=== PATIENT | female | born 1970 | race American Indian/Alaskan Native ===

== ENCOUNTER 2016-10-29 14:43 | Outpatient (CLI) | payer OTHER | END 2016-10-29 14:44 | disposition home or self-care (01) | LOC: LABHHL 14:43 | PROVIDERS: ATTEND Specialist | DX: N60.02 Solitary cyst of left breast (principal); N63 Unspecified lump in breast | CPT/HCPCS: 88112 ==

== ENCOUNTER 2017-12-18 13:09 | Outpatient (CLI) | payer OTHER ==
--- NOTE | 2017-12-21 08:57 | Mammography Report ---
BILATERAL DIGITAL SCREENING MAMMOGRAM with CAD: 12/18/17 13:09:00 CLINICAL: Routine screening. COMPARISON:10/09/16, 10/29/16, 01/01/15 and 12/30/13 FINDINGS: The breasts are heterogeneously dense, which may obscure small masses and the density is sufficient to limit the sensitivity of mammography.Bilateral circumscribed densities require additional imaging. In addition, focal architectural distortion in the outer right breast on an exaggerated CC view requires additional imaging.No suspicious calcifications. IMPRESSION: Bilateral asymmetries and right architectural distortion requiring further workup. BI-RADS CATEGORY: 0 -- Additional Imaging Evaluation Required RECOMMENDATION: Recall for right mediolateral and spot magnification and exaggerated CC views and bilateral global breast ultrasound. ACR BI-RADS MAMMOGRAPHIC CODES: 0 = Needs additional imaging evaluation; 1 = Negative; 2 = Benign; 3 = Probably benign; 4 = Suspicious; 5 = Malignant; 6 = Known biopsy-proven malignancy COMMENT: 1. Dense breast tissue, i.e., adenosis, fibrocystic changes, etc., may obscure an underlying neoplasm. 2. Approximately 10% of cancers are not detected with mammography. 3. A negative mammography report should not delay biopsy if a clinically suspicious mass is present. COMMENT: Patient follow-up letters are generated via our [employer] application.
== END 2017-12-18 13:10 | disposition home or self-care (01) ==
LOC: SPVWC 13:09
PROVIDERS: ATTEND Obstetrics & Gynecology
DX: Z12.31 Encounter for screening mammogram for malignant neoplasm of breast (principal)
CPT/HCPCS: 77067

== ENCOUNTER 2018-12-20 14:35 | Outpatient (CLI) | payer OTHER ==
--- NOTE | 2018-12-21 11:03 | Mammography Report ---
DIGITAL SCREENING MAMMOGRAM WITH CAD, 12/20/2018 INDICATION: Routine screening mammography. TECHNIQUE: Digital bilateral 2D mammography was obtained in the craniocaudal and mediolateral obliq ue projections. This examination was interpreted with the benefit of Computer-Aided Detection analysi s. COMPARISON: 12/18/2017, 10/09/2016 and 01/01/2015 FINDINGS: Breast Density: The breasts are extremely dense, which lowers the sensitivity of mammography. There is no evidence of dominant mass, suspicious calcifications or architectural distortion in the r ight breast. Left partially circumscribed asymmetries on both views require additional imaging. No ar chitectural distortion or suspicious calcifications. IMPRESSION: Left asymmetries requiring additional workup. Recommend recall for left spot compression views and left breast ultrasound if needed. Follow up recommendation: Special View: Spot Category 0: Incomplete. Needs additional imaging evaluation and/or prior mammograms for comparison. A "normal" or negative report should not discourage follow up or biopsy of a clinically significant f inding. A written summary of these findings will be mailed to the patient. The patient will be entered into a mammography reporting system which will generate a reminder letter for the patient's next appointmen t at the appropriate interval. The [employer] recommends yearly mammograms starting at age 40 and continuing as l kameron as a woman is in good health. Breast MRI is recommended for women with an approximate 20-25% or greater lifetime risk of breast cancer, including women with a strong family history of breast or ova salvatore cancer or who have been treated for Hodgkin's disease. Signer Name: Slick Carrillo MD Signed: 12/21/2018 10:58 AM Workstation Name: [id number]
== END 2018-12-20 14:36 | disposition home or self-care (01) ==
LOC: SPVWC 14:35
PROVIDERS: ATTEND Obstetrics & Gynecology
DX: Z12.31 Encounter for screening mammogram for malignant neoplasm of breast (principal)
CPT/HCPCS: 77067

== ENCOUNTER 2018-12-29 13:54 | Outpatient (CLI) | payer OTHER ==
--- NOTE | 2018-12-29 15:51 | Ultrasound Report ---
LEFT DIGITAL DIAGNOSTIC MAMMOGRAM WITH CAD -- 12/29/2018 LEFT COMPLETE BREAST ULTRASOUND INDICATION: Recalled to evaluate asymmetries. F/U abnormal mammogram TECHNIQUE: Digital left mammographic imaging was performed. Spot compression views were obtained. Co mplete ultrasound of all four (4) quadrants was performed. This examination was interpreted with the benefit of Computer-Aided Detection (CAD) analysis. COMPARISON: 12/20/2018 FINDINGS: Breast Density: The breasts are heterogeneously dense, which may obscure small masses. MAMMOGRAPHIC FINDINGS: Lateral medial and spot compression MLO and CC views were performed. An asymme try of persists in the outer posterior breast on spot compression. ULTRASOUND FINDINGS: Complete sonographic evaluation of all 4 quadrants and retroareolar region was p erformed. Ultrasound demonstrated multiple benign cysts. An oval benign anechoic cyst at 1:00 7 cm from the nipple correlates with the mammographic density and measures 1.9 x 1.0 x 2.[address] st at 1:00 1.5 cm from the nipple measures 2.6 x 1.2 x 2.1 cm. A benign retroareolar cyst at 12:00 me asures 2.4 x 1.4 x 2.5 cm. No solid mass. IMPRESSION: Benign cysts and no suspicious finding. Follow up recommendation: Routine yearly BI-RADS Category 2: Benign. A "normal" or negative report should not discourage follow up or biopsy of a clinically significant f inding. A written summary of these findings will be mailed to the patient. The patient will be entered into a mammography reporting system which will generate a reminder letter for the patient's next appointmen t at the appropriate interval. According to the [employer], yearly mammograms are recommended starting at age 40 and continuing as long as a woman is in good health. Breast MRI is recommended for women with an leonardo roximately 20-25% or greater lifetime risk of breast cancer, including women with a strong family his tory of breast or ovarian cancer and women who have been treated for Hodgkin's disease. Signer Name: Slick Carrillo MD Signed: 12/29/2018 3:47 PM Workstation Name: [id number]
== END 2018-12-29 13:55 | disposition home or self-care (01) ==
LOC: SPVWC 13:54
PROVIDERS: ATTEND Obstetrics & Gynecology
DX: N60.02 Solitary cyst of left breast (principal); N64.89 Other specified disorders of breast

== ENCOUNTER 2019-12-30 08:55 | Outpatient (CLI) | payer OTHER ==
--- NOTE | 2019-12-30 12:11 | Mammography Report ---
DIGITAL SCREENING MAMMOGRAM WITH CAD, 12/30/2019 INDICATION: Routine screening mammography. SCREENING MAMMO TECHNIQUE: Digital bilateral 2D mammography was obtained in the craniocaudal and mediolateral obliq ue projections. This examination was interpreted with the benefit of Computer-Aided Detection analysi s. COMPARISON: 12/20/2018 FINDINGS: Breast Density: The breasts are extremely dense, which lowers the sensitivity of mammography. There is no evidence of dominant mass, suspicious calcifications or architectural distortion in eithe r breast. Changing bilateral nodularity, likely benign. Old scar again noted on the right as well. IMPRESSION: Follow up recommendation: Routine yearly BI-RADS Category 2: Benign. A "normal" or negative report should not discourage follow up or biopsy of a clinically significant f inding. A written summary of these findings will be mailed to the patient. The patient will be entered into a mammography reporting system which will generate a reminder letter for the patient's next appointmen t at the appropriate interval. The [employer] recommends yearly mammograms starting at age 40 and continuing as l kameron as a woman is in good health. Breast MRI is recommended for women with an approximate 20-25% or greater lifetime risk of breast cancer, including women with a strong family history of breast or ova salvatore cancer or who have been treated for Hodgkin's disease. Signer Name: Shola Holguin MD Signed: 12/30/2019 12:06 PM Workstation Name: [facility]
== END 2019-12-30 08:56 | disposition home or self-care (01) ==
LOC: SPVWC 08:55
PROVIDERS: ATTEND Obstetrics & Gynecology
DX: Z12.31 Encounter for screening mammogram for malignant neoplasm of breast (principal)
CPT/HCPCS: 77067

== ENCOUNTER 2020-12-31 10:18 | Outpatient (CLI) | payer OTHER ==
--- NOTE | 2021-01-01 11:07 | Mammography Report ---
DIGITAL SCREENING MAMMOGRAM WITH CAD, 12/31/2020 CLINICAL INFORMATION / INDICATION: Routine screening mammography. SCREENING MAMMO TECHNIQUE: Digital bilateral 2D mammography was obtained in the craniocaudal and mediolateral obliqu e projections. This examination was interpreted with the benefit of Computer-Aided Detection analysis . COMPARISON: 12/30/2019. FINDINGS: Breast Density: The breasts are extremely dense, which lowers the sensitivity of mammography. No dominant mass, suspicious calcifications, or architectural distortion in either breast. Bilateral benign changing nodularity. IMPRESSION: No mammographic evidence of malignancy. Follow up recommendation: Routine yearly BI-RADS Category 2: Benign. A "normal" or negative report should not discourage follow up or biopsy of a clinically significant f inding. A written summary of these findings will be mailed to the patient. The patient will be entered into a mammography reporting system which will generate a reminder letter for the patient's next appointmen t at the appropriate interval. The [employer] recommends yearly mammograms starting at age 40 and continuing as l kameron as a woman is in good health. Breast MRI is recommended for women with an approximate 20-25% or greater lifetime risk of breast cancer, including women with a strong family history of breast or ova salvatore cancer or who have been treated for Hodgkin's disease. Signer Name: Franc Ceedno MD Signed: 01/01/2021 11:03 AM Workstation Name: [id number]
== END 2020-12-31 10:19 | disposition home or self-care (01) ==
LOC: SPVWC 10:18
PROVIDERS: ATTEND Obstetrics & Gynecology
DX: Z12.31 Encounter for screening mammogram for malignant neoplasm of breast (principal)
CPT/HCPCS: 77067